=== PATIENT | male | born 1970 | race Caucasian/White ===

== ENCOUNTER 2018-04-29 07:37 | Emergency (ER) | payer OTHER ==
[~2018-04-29] VITALS: Ht 172.7 cm; Wt 100.0 kg
[2018-04-29 09:30] LABS: BASOPHILS % (AUTO) 0.4 % (0-1); EOSINOPHILS # (AUTO) 0.3 X10'3 (0-0.9); EOSINOPHILS % (AUTO) 3.7 % (0-6); HEMATOCRIT 47.2 % (42.0-52.0); HEMOGLOBIN 15.9 g/dl (14.0-17.9); LYMPHOCYTES # (AUTO) 2.2 X10'3 (1.1-4.8); MEAN CORPUSCULAR HEMOGLOBIN 32.2 PG (27.0-31.0); MEAN CORPUSCULAR HGB CONC 33.7 % (33.0-36.5); MEAN CORPUSCULAR VOLUME 95.4 FL (78-98); MONOCYTES # (AUTO) 0.8 X10'3 (0-0.9); MONOCYTES % (AUTO) 10.3 % (2-12); NEUTROPHILS # (AUTO) 4.1 X10'3 (1.8-7.7); NEUTROPHILS % (AUTO) 55.6 % (42-75); PLATELET COUNT 282 X10'3 (140-440); RED BLOOD COUNT 4.95 X10'6 (4.70-6.10); WHITE BLOOD COUNT 7.3 X10'3 (4.5-11.0)
[2018-04-29] MEDS ORDERED: iohexol 300mg/ml 100ml inj. ONE (09:31)
[2018-04-29 09:51] LABS: ALANINE AMINOTRANSFERASE 89 U/L (12-78); ALBUMIN 4.1 G/DL (3.4-5.0); ALBUMIN/GLOBULIN RATIO 1.1 (1.1-1.5); ALKALINE PHOSPHATASE 81 IU/L (46-116); ANION GAP 6 (8-16); ASPARTATE AMINO TRANSFERASE 44 U/L (10-37); BILIRUBIN,TOTAL 0.8 MG/DL (0.1-1.0); BLOOD UREA NITROGEN 13 MG/DL (7-18); BUN/CREATININE RATIO 11.2 (5.4-32.0); CALCIUM 9.3 MG/DL (8.5-10.1); CHLORIDE 104 MMOL/L (99-107); CREATININE 1.16 MG/DL (0.60-1.10); ETHANOL < 0.010 GM/DL (0.0-0.010); GLUCOSE 124 MG/DL (70-104); LIPASE 271 U/L (73-393); POTASSIUM 4.5 MMOL/L (3.5-5.1); SODIUM 138 MMOL/L (135-145); TOTAL PROTEIN 7.7 G/DL (6.4-8.2); eGFR 67 ML/MIN
[2018-04-29 10:02] LABS: URINE AMPHETAMINE SCREEN NEGATIVE (Neg); URINE BARBITUATE SCREEN NEGATIVE (Neg); URINE BENZODIAZEPINES SCREEN NEGATIVE (Neg); URINE CANNABINOID SCREEN NEGATIVE (Neg); URINE COCAINE SCREEN NEGATIVE (Neg); URINE METHADONE SCREEN NEGATIVE (Neg); URINE OPIATE SCREEN NEGATIVE (Neg); URINE PHENCYCLIDINE SCREEN NEGATIVE (Neg)
[2018-04-29] MEDS ORDERED: HYDROcodone/acetaminophen 5mg/325mg tablet PO ONE (10:10)
[2018-04-29 10:59] VITALS: BP 155/80
== END 2018-04-29 11:00 | disposition home or self-care (01) ==
LOC: ER 07:37
DX: M25.512 Pain in left shoulder (principal); Z88.0 Allergy status to penicillin; Z88.2 Allergy status to sulfonamides; V49.88XA Car occupant (driver) (passenger) injured in other specified transport accidents, initial encounter; Y93.89 Activity, other specified; Y92.89 Other specified places as the place of occurrence of the external cause; Y99.9 Unspecified external cause status
CPT/HCPCS: 36415; 73030; 74177; 80053; 80305; 80320; 83690; 85025; 99285; J7030; Q9967

== ENCOUNTER 2019-08-02 11:44 | Emergency (ER) | payer BC, OTHER ==
[~2019-08-02] VITALS: Ht 172.7 cm; Wt 110.0 kg
[~2019-08-02 11:44] MED LIST: LIDOcaine 1% W/epiNEPHrine 1:100,000 20ml vial ONE
[2019-08-02] MEDS ORDERED: TETanus/Pertussis (Acell)/Diphther VAC/PF (Tdap-Adult) 0.5ml syringe IMVAC ONE (12:35)
[2019-08-02] MEDS ORDERED: ketorolac trometh inj. 60 MG/2 ML VIAL IM ONE (12:40)
[2019-08-02] MEDS ORDERED: DOXY100C43 PO (12:48)
[2019-08-02] MEDS ORDERED: DOXYCYCLINE 100MG CAPSULE PO STA (14:25)
[2019-08-02 14:37] VITALS: BP 129/73
== END 2019-08-02 14:41 | disposition home or self-care (01) ==
LOC: ER 11:44
DX: S83.92XA Sprain of unspecified site of left knee, initial encounter (principal); S80.12XA Contusion of left lower leg, initial encounter; L02.214 Cutaneous abscess of groin; Z88.0 Allergy status to penicillin; Z88.2 Allergy status to sulfonamides; Z88.6 Allergy status to analgesic agent; Z79.899 Other long term (current) drug therapy; X58.XXXA Exposure to other specified factors, initial encounter; Y93.89 Activity, other specified; Y92.89 Other specified places as the place of occurrence of the external cause; Y99.8 Other external cause status
CPT/HCPCS: 10060; 73590; 90471; 90715; 96372; 99283; J1885